=== PATIENT | male | born 1990 | race Caucasian/White ===

== ENCOUNTER → 2021-10-20 | Outpatient (CLI) | payer BC ==
[~2021-10-20] MED LIST: CYCLOBENZAPRINE5 MG PO; NAPROSYN500 MG PO
== END ==
LOC: KOH-I 12:20
DX: M54.17 Radiculopathy, lumbosacral region (principal); M54.50 Low back pain, unspecified
CPT/HCPCS: 72100

== ENCOUNTER → 2021-12-08 | Outpatient (CLI) | payer BC | LOC: KOH-I 10:56 | DX: M51.17 Intervertebral disc disorders with radiculopathy, lumbosacral region (principal); R94.8 Abnormal results of function studies of other organs and systems; M54.50 Low back pain, unspecified; D72.829 Elevated white blood cell count, unspecified | CPT/HCPCS: 72148 ==